=== PATIENT | female | born 1950 | race Caucasian/White ===

== ENCOUNTER 2016-03-13 22:16 | Emergency (ER) | payer OTHER ==
[2016-03-13] MEDS ORDERED: NS 1,000 ML IV ONE (22:20)
--- NOTE | 2016-03-13 22:21 | EDPHY ---
H & P HPI/ROS: HPI CHIEF COMPLAINT: Abdominal pain, right upper quadrant, epigastric HISTORY OF PRESENT ILLNESS: This patient is 65-year-old female, denies any significant medical history she does tell me remotely she had a gallbladder attack where they wanted to take her gallbladder out however she refused. She presents emergency room by EMS she received 200 mcg IV fentanyl in route by EMS , she presents due to epigastric right upper quadrant abdominal pain she describes as a punching sensation in the middle of her abdomen she tells me she had nausea but no vomiting denies fever. She tells me this started around 1930 and has been relentless. She tells me that every occasionally she gets a gallbladder attack and neck [place] and eventually goes away. Upon arrival to the emergency room she does have epigastric pain on exam and right upper quadrant pain she was given 200 mcg of fentanyl prior to arrival. She is much more comfortable. She denies chest pain, shortness of breath. She does admit that the pain radiates around to her back. Past Medical History: Denies any significant medical history Past Surgical History: Tonsillectomy Social History: denies use daily of drugs alcohol tobacco products Family History: Noncontributory ROS REVIEW OF SYSTEMS: A comprehensive 10 point review of systems is otherwise negative aside from elements mentioned in the history of present illness. Exam Constitutional triage nursing summary reviewed, vital signs reviewed, awake/ alert. Eyes normal conjunctivae and sclera, EOMI, PERRLA. HENT normal inspection, atraumatic, moist mucus membranes, no epistaxis, neck supple/ no meningismus, no raccoon eyes. Respiratory clear to auscultation bilaterally, normal breath sounds, no respiratory distress, no wheezing. Cardiovascular rate normal, regular rhythm, no murmur, no edema, distal pulses normal. Gastrointestinal soft, tender palpation in her epigastric and right upper quadrant, no rebound, no guarding, normal bowel sounds, no distension, no pulsatile mass. Genitourinary no CVA tenderness. Musculoskeletal no midline vertebral tenderness, full range of motion, no calf swelling, no tenderness of extremities, no meningismus, good pulses, neurovascularly intact. Skin pink, warm, & dry, no rash, skin atraumatic. Neurologic awake, alert and oriented x 3, AAOx3, moves all 4 extremities equally, motor intact, sensory intact, CN II-XII intact, normal cerebellar, normal vision, normal speech. Psychiatric normal mood/affect. Heme/Lymph/Immune no lymphadenopathy. Differential diagnosis includes but is not limited to and in no particular order : Bowel obstruction, appendicitis, gallbladder disease, diverticulitis, colitis , enteritis, perforated viscus, gastritis, GERD, esophagitis, urinary tract infection, pyelonephritis, kidney stones Medical Decision Making: patient had an IV established obtain blood work including abdominal labs including LFTs and lipase, patient need ultrasound of her right upper quadrant. Re-evaluation: EKG interpretation by me on record in [employer] system. Impression time of EKG 2330, this is sinus rhythm rate of 57, no acute ischemic changes appreciated. Specifically no ST elevation, ST depression, T-wave abnormality. 1237: Re-examination at this time the abdomen is soft nontender no guarding or peritoneal signs. Ultrasound does reveal gallstones however no evidence of acute cholecystitis. Her blood work is reassuring without high white count or LFT or lipase or bilirubin issue. She would like to go home. I will give her limited supply of Wesley. She does understand return to the emergency room immediately if she develops worsening symptoms worsening symptoms includes abdominal pain, fever, vomiting. I also placed on her discharge paperwork General surgery follow-up if she electively decides to have her gallbladder removed. Again on re-examination abdomen is soft there is no tenderness she is not vomiting her vitals are reassuring she would like to go home. Ultrasound of the Abdomen, right upper quadrant The results of the study are this shows gallstones no evidence of acute cholecystitis no evidence of ductal dilatation or impacted stone, I discussed the results of this study with the radiologist Dr. Olivera Source: Patient, EMS Constitutional: Initial Vital Signs Temperature (C) 36.6 C 03/13/16 22:17 Heart Rate 61 03/13/16 22:17 Respiratory Rate 16 03/13/16 22:17 Blood Pressure 120/87 H 03/13/16 22:17 O2 Sat (%) 95 03/13/16 22:17 O2 Delivery Mode Room Air Allergies/Adverse Reactions: ciprofloxacin [From Cipro] Allergy (Verified 03/13/16 22:32) ciprofloxacin HCl [From Cipro] Allergy (Verified 03/13/16 22:32) Sulfa (Sulfonamide Antibiotics) Allergy (Verified 03/13/16 22:36) Home Medications: Medication Instructions Recorded Hydrocodone/APAP [[place] 1 - 2 tab PO Q4H PRN #10 tab 03/14/16] Medical Decision Making - Data Points Laboratory Results: Laboratory Results 03/13/16 22:30 03/13/16 22:30 03/13/16 03/13/16 23:55 22:30 WBC 7.17 10^3/uL (3.80-9.50) RBC 4.51 10^6/uL (4.18-5.33) Hgb 15.0 g/dL (12.6-16.3) Hct 42.2 % (38.0-47.0) MCV 93.6 fL (81.5-99.8) MCH 33.3 pg (27.9-34.1) MCHC 35.5 g/dL (32.4-36.7) RDW 11.9 % (11.5-15.2) Plt Count 195 10^3/uL (150-400) MPV 11.1 fL (8.7-11.7) Neut % (Auto) 52.2 % (39.3-74.2) Lymph % (Auto) 39.7 % (15.0-45.0) [place] % (Auto) 5.9 % (4.5-13.0) Eos % (Auto) 1.3 % (0.6-7.6) Baso % (Auto) 0.6 % (0.3-1.7) Nucleat RBC Rel Count 0.0 % (0.0-0.2) Absolute Neuts (auto) 3.75 10^3/uL (1.70-6.50) Absolute Lymphs (auto) 2.85 10^3/uL (1.00-3.00) Absolute Monos (auto) 0.42 10^3/uL (0.30-0.80) Absolute Eos (auto) 0.09 10^3/uL (0.03-0.40) Absolute Basos (auto) 0.04 10^3/uL (0.02-0.10) Absolute Nucleated RBC 0.00 10^3/uL (0-0.01) Immature Gran % 0.3 % (0.0-1.1) Immature Gran # 0.02 10^3/uL (0.00-0.10) Sodium 137 mEq/L (134-144) Potassium 3.7 mEq/L (3.5-5.2) Chloride 103 mEq/L (97-110) Carbon Dioxide 23 mEq/l (22-31) Anion Gap 11 mEq/L (8-16) BUN 17 mg/dL (7-23) Creatinine 0.7 mg/dL (0.6-1.0) Estimated GFR > 60 Glucose 103 H mg/dL (70-100) Calcium 9.2 mg/dL (8.5-10.4) Total Bilirubin 0.6 mg/dL (0.1-1.4) Conjugated Bilirubin 0.2 mg/dL (0.0-0.5) Unconjugated Bilirubin 0.4 mg/dL (0.0-1.1) AST 62 H IU/L (14-46) ALT 45 IU/L (9-52) Alkaline Phosphatase 86 IU/L (38-126) Troponin I 0.021 ng/mL (0-0.034) Total Protein 7.2 g/dL (6.3-8.2) Albumin 4.4 g/dL (3.5-5.0) Lipase 272.0 IU/L (23-300) Urine Color YELLOW Urine Appearance CLEAR Urine pH 5.0 (5.0-7.5) Ur Specific [place] 1.023 (1.002-1.030) Urine Protein NEGATIVE (NEGATIVE) Urine Ketones TRACE H (NEGATIVE) Urine Blood NEGATIVE (NEGATIVE) Urine Nitrate NEGATIVE (NEGATIVE) Urine Bilirubin NEGATIVE (NEGATIVE) Urine Urobilinogen NEGATIVE EU (0.2-1.0) Ur Leukocyte Esterase NEGATIVE (NEGATIVE) Ur Culture Indicated? NOT INDICATED (NI) Urine Glucose NEGATIVE (NEGATIVE) Medications Given: Discontinued Medications Sodium Chloride (Ns) 1,000 mls @ 0 mls/hr IV ONCE ONE PRN Reason: Wide Open Stop: 03/13/16 22:21 Last Admin: 03/13/16 22:45 Dose: 1,000 mls Departure - Departure Disposition: Home, Routine, Self-Care Clinical Impression: Right upper quadrant abdominal pain Condition: Good Instructions: Abdominal Pain (ED) Additional Instructions: 1. stay well-hydrated do not eat fatty greasy foods. 2. Return to the emergency room if he develops worsening symptoms includes worsening abdominal pain, fever, vomiting. 3. You may follow up with a surgeon if need be. I have given you this contact information if he Sunday electively get her gallbladder out. Referrals: Tim Peacock MD [Medical Doctor] - As per Instructions Prescriptions: Hydrocodone/APAP 5/325 [[place] 5/325] 1 - 2 tab PO Q4H PRN #10 tab PRN Reason: Pain, Moderate
[2016-03-13 22:47] LABS: % IMMATURE GRANULYOCYTES 0.3 % (0.0-1.1); ABSOLUTE IMMATURE GRANULOCYTES 0.02 10^3/uL (0.00-0.10); ADD DIFF? NO; ADD MORPH? NO; ADD SCAN? NO; ATYPICAL LYMPHOCYTE FLAG 0 (0-99); FRAGMENT RBC FLAG 0 (0-99); HEMATOCRIT 42.2 % (38.0-47.0); LEFT SHIFT FLG 0 (0-99); LIPEMIA HEMOLYSIS FLAG 90 (0-99); MEAN CELL HEMOGLOBIN 33.3 pg (27.9-34.1); MEAN CELL HEMOGLOBIN CONCENTR. 35.5 g/dL (32.4-36.7); MEAN CELL VOLUME 93.6 fL (81.5-99.8); MEAN PLATELET VOLUME 11.1 fL (8.7-11.7); PLATELET CLUMPS FLAG 20 (0-99); PLATELET COUNT 195 10^3/uL (150-400); RED BLOOD CELL COUNT 4.51 10^6/uL (4.18-5.33); RED CELL DISTRIBUTION WIDTH 11.9 % (11.5-15.2)
[2016-03-13 23:03] LABS: ALANINE AMINOTRANSFERASE 45 IU/L (9-52); ALBUMIN 4.4 g/dL (3.5-5.0); ALKALINE PHOSPHATASE 86 IU/L (38-126); ANION GAP 11 mEq/L (8-16); ASPARTATE AMINOTRANSFERASE 62 IU/L (14-46); BILIRUBIN,TOTAL 0.6 mg/dL (0.1-1.4); BILIRUBIN-CONJUGATED 0.2 mg/dL (0.0-0.5); BILIRUBIN-UNCONJUGATED 0.4 mg/dL (0.0-1.1); CALCIUM 9.2 mg/dL (8.5-10.4); CARBON DIOXIDE 23 mEq/l (22-31); CHLORIDE 103 mEq/L (97-110); CREATININE 0.7 mg/dL (0.6-1.0); GLOMERULAR FILTRATION RATE > 60; GLUCOSE 103 mg/dL (70-100); POTASSIUM 3.7 mEq/L (3.5-5.2); SODIUM 137 mEq/L (134-144); TOTAL PROTEIN 7.2 g/dL (6.3-8.2)
--- NOTE | 2016-03-13 23:09 | US ---
Ultrasound abdomen limited. HISTORY: Right upper quadrant abdominal pain. FINDINGS: The liver measures 15 cm. No focal liver lesion. No evidence for intrahepatic biliary ducta l dilatation. An irregular gallstone is seen in the gallbladder measuring 1.8 cm and a couple other s maller stones. Gallbladder wall is normal in thickness without evidence for hyperemia or pericholecys tic fluid. The common bile duct measures 5.5 mm. Right kidney measures 12 10 cm in length and demonst rates no evidence for mass or hydronephrosis. No significant free fluid in the upper abdomen. Abdomin al aorta is normal in diameter. Pancreas is unremarkable. IMPRESSION: Cholelithiasis without evidence for cholecystitis. Results discussed with Dr. Oc garcia.
--- NOTE | 2016-03-13 23:32 | CPEKG ---
Heart Rate: 57 RR Interval: 1053 P-R Interval: 148 QRSD Interval: 104 QT Interval: 464 QTC Interval: 452 P [place]: 71 QRS [place]: 78 T Wave [place]: 60 EKG Severity - NORMAL ECG - EKG Impression: SINUS RHYTHM Electronically Signed By: Oc Alexandre 14-Mar-2016 05:16:56
[2016-03-14 00:09] LABS: COLOR YELLOW; LEUKOCYTE ESTERASE,URINE NEGATIVE (NEGATIVE); NITRITE,URINE NEGATIVE (NEGATIVE)
[2016-03-14 00:33] VITALS: O2SAT 98
[2016-03-14] MEDS ORDERED: HYDROCOD/APAP 5/325 PREPACK#6 BTL TAKEHOME ONE ×2 (00:55→01:00)
[2016-03-14 01:25] VITALS: BP 93/64; PULSE 56; RESP 20; TEMP 98.1
== END 2016-03-14 01:15 | disposition home or self-care (01) ==
LOC: EDUNIT#
DX: R10.11 Right upper quadrant pain (principal)

== ENCOUNTER 2017-03-26 00:19 | Observation (INO) | payer OTHER ==
[2017-03-26 00:57] LABS: PLATELET COUNT 170 10^3/uL (150-400)
[2017-03-26] MEDS ORDERED: HYDROmorphONE/DILAUDID 1 MG/ML INJ IVP PRN ×2 (01:30→08:50)
--- NOTE | 2017-03-26 01:34 | EDPHY ---
H & P Stated Complaint: "Galbladder attack", n/v Time Seen by Provider: 03/26/17 01:15 HPI/ROS: HPI The patient presents with right upper quadrant and epigastric abdominal pain which began several hours prior to presentation. She had similar pain a few days ago, though this improved after moving around and lifting some weights. Tonight her pain started suddenly and got progressively worse over time. She began vomiting and became diaphoretic. She describes the pain as a pressure like sensation that radiates to her right abdomen and feels like a band. One year ago she had a similar episode and was diagnosed with biliary colic. Her last episode before this was 10 years ago. She generally would like to avoid any operations.. REVIEW OF SYSTEMS Constitutional: No fever, no chills. Eyes: No discharge. ENT: No sore throat. Cardiovascular: No chest pain, no palpitations. Respiratory: No cough, no shortness of breath. Gastrointestinal: See HPI Genitourinary: No hematuria. Musculoskeletal: No back pain. Skin: No rashes. Neurological: No headache. PMHx: Healthy Soc Hx: Lives at home by herself with many pets PHYSICAL General Appearance: Alert, no distress Eyes: Pupils equal and round no pallor or injection ENT, Mouth: Mucous membranes moist Respiratory: There are no retractions, lungs are clear to auscultation Cardiovascular: Regular rate and rhythm Gastrointestinal: Abdomen is soft with tenderness in the epigastrium without rebound or guarding Neurological: A&O, moves all extremities Skin: Warm and dry, no rashes Musculoskeletal: Neck is supple non tender Extremities: symmetrical, full range of motion Psychiatric: Patient is oriented X 3, there is no agitation Source: Patient Exam Limitations: No limitations - Personal History Current Tetanus Diphtheria and Acellular Pertussis (TDAP): Yes - Medical/Surgical History Hx Asthma: No Hx Chronic Respiratory Disease: No Hx Diabetes: No Hx Cardiac Disease: No Hx Renal Disease: No Hx Cirrhosis: No Hx Alcoholism: No Hx HIV/AIDS: No Hx Splenectomy or Spleen Trauma: No Other PMH: gallbladder issues 20 years ago - Social History Smoking Status: Never smoked Constitutional: Initial Vital Signs Temperature (C) 36.7 C 03/26/17 00:29 Heart Rate 66 03/26/17 00:29 Respiratory Rate 20 03/26/17 00:29 Blood Pressure 110/66 03/26/17 00:29 O2 Sat (%) 98 03/26/17 00:29 O2 Delivery Mode Room Air Allergies/Adverse Reactions: ciprofloxacin [From Cipro] Allergy (Verified 03/13/16 22:32) ciprofloxacin HCl [From Cipro] Allergy (Verified 03/13/16 22:32) Sulfa (Sulfonamide Antibiotics) Allergy (Verified 03/13/16 22:36) Home Medications: Medication Instructions Recorded Herbals/Supplements -Info Only 1 ea PO DAILY 03/26/17 Medical Decision Making - Diagnostics Imaging Results: RUQ ULS demonstrates gallstone with sludge, + PCCF, + Bradshaw's discussed with Dr. Blanchard of radiology. Imaging: Discussed imaging studies w/ solutions specialist Radiologist, I viewed and interpreted images myself Differential Diagnosis: This is a very healthy 66 yo F who presents with several hours of epigastric and RUQ abd pain that radiates towards her back associated with nausea and vomiting. Similar episode about 1 year ago, though sxs improved quickly. Has had prior pain dating back about 20 years. Has not had surgical evaluation for CCY because of infrequency of sxs. On exam, uncomfortable appearing, tender in epigastrium and RUQ. Labs demonstrating very mild leukocytosis and elevated AST. RUQ US shows sludge and large stone, with small PCCF and + Bradshaw's. Pt given fentanyl en route and dilaudid here with ongoing pain. I discussed diagnosis of bilary colic versus possible mild cholecystitis. She agrees to admission to hospital for ongoing monitoring, though generally would like to avoid an operation if possible. I have discussed the case with Dr. Larios of surgery who will see the patient and admit her. - Data Points Laboratory Results: Laboratory Results 03/26/17 00:36 03/26/17 00:36 Medications Given: Hydrocodone Bitart/Acetaminophen ([place] 5/325) 1 - 2 tab PO Q4 PRN PRN Reason: Pain, Moderate Able to Take PO Stop: 04/05/17 22:08 Last Admin: 03/27/17 05:08 Dose: 2 tab Hydromorphone HCl (Dilaudid) 0.2 - 0.4 mg IVP Q2HRS PRN PRN Reason: Pain, Severe Unable to Take PO Stop: 04/05/17 22:08 Last Admin: 03/26/17 23:43 Dose: 0.4 mg Potassium Chloride/Sodium Chloride (Ns W/ 20 Kcl/L) 1,000 mls @ 125 mls/hr IV CONT MARTÍN Stop: 09/22/17 08:59 Last Admin: 03/26/17 18:26 Dose: 1,000 mls Cefazolin Sodium/Dextrose (Ancef 1 Gm (Premix)) 50 mls @ 200 mls/hr IV Q8 MARTÍN PRN Reason: Protocol Stop: 03/27/17 22:14 Last Admin: 03/27/17 05:10 Dose: 50 mls Ketorolac Tromethamine (Toradol) 15 mg IVP Q6 MARTÍN Stop: 04/01/17 00:00 Last Admin: 03/27/17 05:07 Dose: 15 mg Ondansetron HCl (Zofran) 4 mg IVP Q4 PRN PRN Reason: Nausea/Vomiting, Can't Take PO Stop: 09/22/17 08:49 Last Admin: 03/27/17 05:08 Dose: 4 mg Ondansetron HCl (Zofran) 4 mg IVP Q4 PRN PRN Reason: Nausea/Vomiting, Use 1st Stop: 09/22/17 22:08 Last Admin: 03/26/17 23:34 Dose: 4 mg Discontinued Medications Bupivacaine HCl (Sensorcaine 0.5% Vial) Confirm Administered Dose 30 ml .ROUTE .STK-MED ONE Stop: 03/26/17 20:28 Last Admin: 03/26/17 21:49 Dose: 30 ml Cefazolin Sodium (Ancef Syringe) Confirm Administered Dose 1 gm .ROUTE .STK-MED ONE Stop: 03/26/17 20:28 Last Admin: 03/26/17 21:49 Dose: Not Given Fentanyl (Sublimaze) 25 - 100 mcg IVP Q5M PRN PRN Reason: PACU, IMMEDIATE Pain control Stop: 03/26/17 23:06 Last Admin: 03/26/17 22:40 Dose: 50 mcg Heparin Sodium (Porcine) (Heparin Sodium) Confirm Administered Dose 2,000 unit .ROUTE .STK-MED ONE Stop: 03/26/17 20:28 Last Admin: 03/26/17 21:49 Dose: Not Given Hydromorphone HCl (Dilaudid) 0.5 mg IVP Q4 PRN PRN Reason: Pain, Severe Unable to Take PO Stop: 04/05/17 01:29 Last Admin: 03/26/17 01:43 Dose: 0.5 mg Sodium Chloride (Ns) 1,000 mls @ 0 mls/hr IV EDNOW ONE; Wide Open PRN Reason: Protocol Stop: 03/26/17 02:35 Last Admin: 03/26/17 02:48 Dose: 1,000 mls Cefoxitin Sodium 2 gm/ Sterile (Water) 21 mls @ 252 mls/hr IV ONCALL ONE PRN Reason: Protocol Stop: 03/26/17 08:56 Last Admin: 03/26/17 21:58 Dose: Not Given Iopamidol (Isovue-300) Confirm Administered Dose 150 ml .ROUTE .STK-MED ONE Stop: 03/26/17 20:42 Last Admin: 03/26/17 22:05 Dose: Not Given Lorazepam (Ativan Injection) 1 mg IVP ONCE ONE Stop: 03/26/17 03:01 Last Admin: 03/26/17 03:09 Dose: 1 mg Meperidine HCl (Demerol 25 Mg/Ml Syringe) 12.5 - 25 mg IVP Q10M PRN PRN Reason: PACU,shivering/rigors Stop: 03/26/17 23:06 Last Admin: 03/26/17 22:35 Dose: 12.5 mg Departure - Departure Disposition: [facility] Clinical Impression: Biliary colic Condition: Fair
[2017-03-26] MEDS ORDERED: NS 1,000 ML IV ONE (02:34)
[2017-03-26] MEDS ORDERED: LORazepam 2 MG/ML INJ IVP ONE (03:00)
[2017-03-26] MEDS ORDERED: ONDANSETRON 4 MG/2 ML VIAL IVP PRN ×3 (08:50→22:09)
[2017-03-26] MEDS ORDERED: cefOXitin SODIUM 2 GM in STERILE WATER INJ 21 ML IV ONE (08:52)
--- NOTE | 2017-03-26 10:27 | GHP ---
[f rep st] PREOP HISTORY AND PHYSICAL DATE OF ADMISSION: 03/26/2017 HISTORY OF PRESENT ILLNESS: Patient is a 66-year-old female who was admitted at this time with a gal lbladder attack. She has had multiple attacks over the past few years. Ultrasound shows a thickened gallbladder wall with multiple stones. LFTs are essentially normal except for mild elevation of her AST. She does have significant pain in the right upper quadrant and is willing to proceed with lapa roscopic cholecystectomy at this point. REVIEW OF SYSTEMS: Negative except as related to the HPI. She does not smoke and denies any cardiac injury. She does bicycle racing. MEDICATIONS: Hydrocodone. ALLERGIES: Sulfa and Cipro. PHYSICAL EXAMINATION: GENERAL: An alert 66-year-old female in no acute distress. HEAD and NECK: R eveals no icterus or adenopathy. Pupils are normal. NECK: Supple, nontender. CHEST: Clear and sy mmetric. CARDIAC: Regular rhythm. ABDOMEN: Soft. She is quite tender in the right upper quadrant . EXTREMITIES: Benign. Full range of motion, full pulses. NEUROLOGIC: Exam was physiologic. PSY CH: Revealed alert, cooperative, oriented. IMPRESSIONS: Biliary colic and cholelithiasis, cholecystitis. PLAN: Admit for laparoscopic cholecystectomy. Risks and options have been discussed and she wishes to proceed. /[id number]/MODL
[2017-03-26] MEDS: NS W/ 20 KCl/L 1,000 ML IV SCH ×2 (10:36→18:26)
--- NOTE | 2017-03-26 16:38 | ASMTCMCOM ---
CM Note CM Note Notes: Patient admitted for lap choly, should happen this afternoon. She lives independently, I do not anticipate any discharge needs. Case Management available if any arise. Current CM Discharge plan: home Date Signed: 03/26/2017 03:29 PM Electronically Signed By:Genia Armstrong RN
[2017-03-26] MEDS ORDERED: fentaNYL 100 MCG/2 ML INJ ONE ×3 (20:20→22:28)
[2017-03-26] MEDS ORDERED: MIDAZOLAM 2 MG/2 ML VIAL ONE (20:20)
[2017-03-26] MEDS ORDERED: ROCURONIUM 100 MG/10 ML VIAL ONE (20:21)
[2017-03-26] MEDS ORDERED: METOCLOPRAMIDE 10 MG/2 ML VIAL ONE (20:21)
[2017-03-26] MEDS ORDERED: LIDOCAINE 2% 100 MG/5 ML SYR ONE (20:21)
[2017-03-26] MEDS ORDERED: DEXAMETHASONE 4 MG/ML VIAL ONE ×2 (20:21)
[2017-03-26] MEDS ORDERED: PROPOFOL 200 MG/20 ML VIAL ONE (20:21)
--- NOTE | 2017-03-26 20:26 | PDANEPAE ---
ANE Past Medical History - Pulmonary History Hx Oxygen in Use at Home: No Hx Sleep Apnea: No Sleep Apnea Screening Result - Last Documented: Negative - Endocrine History Hx Diabetes: No - Chronic Pain History Chronic Pain: No ANE Review of Systems Review of Systems: ANE Patient History - Allergies Allergies/Adverse Reactions: ciprofloxacin [From Cipro] Allergy (Verified 03/13/16 22:32) ciprofloxacin HCl [From Cipro] Allergy (Verified 03/13/16 22:32) Sulfa (Sulfonamide Antibiotics) Allergy (Verified 03/13/16 22:36) - Home Medications Home Medications: Herbals/Supplements -Info Only 1 ea PO DAILY 03/26/17 [Last Taken Unknown] - NPO status NPO Since - Liquids (Date): 03/26/17 NPO Since - Liquids (Time): 03:30 NPO Since - Solids (Date): 03/26/17 NPO Since - Solids (Time): 03:30 - Smoking Hx Smoking Status: Never smoked ANE Labs/Vital Signs - Labs Result Diagrams: 03/26/17 00:36 03/26/17 00:36 - Vital Signs Blood Pressure: 106/57 Heart Rate: 60 Respiratory Rate: 18 O2 Sat (%): 92 Height: 165.1 cm Weight: 61.83 kg ANE Physical Exam - Airway Neck exam: FROM Mallampati Score: Class 2 Mouth exam: normal dental/mouth exam - Pulmonary Pulmonary: no respiratory distress - Cardiovascular Cardiovascular: regular rate and rhythym - ASA Status ASA Status: II ANE Anesthesia Plan Anesthesia Plan: general endotracheal anesthesia
[2017-03-26] MEDS ORDERED: HEPARIN 1000 UNIT/1 ML MDV ONE (20:27)
[2017-03-26] MEDS ORDERED: ceFAZolin 1 GM/5 ML SYR ONE (20:27)
[2017-03-26] MEDS ORDERED: BUPIVACAINE 0.5% 30 ML SDV ONE (20:27)
[2017-03-26] MEDS ORDERED: IOPAMIDOL (ISOVUE-300) 150 ML BTL ONE (20:41)
[2017-03-26] MEDS ORDERED: MEPERIDINE 25 MG/ML SYR IVP PRN (22:05)
[2017-03-26] MEDS ORDERED: NALOXONE HCL 0.4 MG/ML INJ IVP PRN (22:05)
[2017-03-26] MEDS ORDERED: ALBUTEROL 3 ML DEYVIAL IH PRN (22:05)
--- NOTE | 2017-03-26 22:07 | POSTANESTH ---
Post Anesthetic Evaluation Cardiovascular Status: Similar to Pre-Op Cond Respiratory Status: Similar to Pre-op Cond. Level of Consciousness/Mental Status: Mildly Sleepy, Arousable Pain Control: Adequate, Prn Tx Ordered Nausea/Vomiting Control: Adequate, Prn Tx Ordered Complications Possibly Related to Anesthesia: None Noted
--- NOTE | 2017-03-26 22:07 | POSTOPPROG ---
Post Op Note Date of Operation: 03/26/17 Surgeon: You Larios Anesthesiologist: DAVIAN Anesthesia: GET(General Endotracheal) Pre-op Diagnosis: ACUTE CHOLECYSTITIS Post-op Diagnosis: SAME Indication: PAIN Procedure: LAP CHOLY Findings: HYDROPS GB, LARGE STONE, SMALL DUCTS Inf/Abcess present in the surg proc area at time of surgery?: Yes Depth: Organ Space EBL: Minimal Complications: 0 Specimen(s): GALLBLADDER
[2017-03-26] MEDS ORDERED: D5W 1/2 NS W/ 20 KCl/L 1,000 ML IV SCH (22:15)
[2017-03-26] MEDS: fentaNYL 100 MCG/2 ML INJ IVP PRN ×2 (22:30→22:40)
[2017-03-26] MEDS ORDERED: MEPERIDINE 25 MG/ML SYR ONE (22:33)
[2017-03-26] MEDS: HYDROCODONE/APAP 5/325 TAB PO PRN (23:34)
[2017-03-26] MEDS: KETOROLAC 15 MG/1 ML SDV IVP SCH (23:35)
[2017-03-26] MEDS: HYDROmorphONE/DILAUDID 1 MG/ML INJ IVP PRN (23:43)
[2017-03-27] MEDS: KETOROLAC 15 MG/1 ML SDV IVP SCH ×3 (05:07→12:37)
[2017-03-27] MEDS: HYDROCODONE/APAP 5/325 TAB PO PRN (05:08)
[2017-03-27] MEDS: HYDROmorphONE/DILAUDID 1 MG/ML INJ IVP PRN (06:07)
[2017-03-27] MEDS: NS W/ 20 KCl/L 1,000 ML IV SCH (09:18)
[2017-03-27 12:01] VITALS: PULSE 56; RESP 16
--- NOTE | 2017-03-27 12:12 | GOP ---
[f rep st] OPERATIVE REPORT DATE OF OPERATION: 03/26/2017 SURGEON: You Larios MD REPAIRER SCREEN CRUSHER: None. ANESTHESIA: Varun Brunner MD PREOPERATIVE DIAGNOSIS: Acute cholecystitis. POSTOPERATIVE DIAGNOSIS: Acute cholecystitis. PROCEDURE PERFORMED: Laparoscopic cholecystectomy. FINDINGS: The patient was found to have a hydrops of the gallbladder with a single stone and a marke dly distended, inflamed, and edematous gallbladder. ESTIMATED BLOOD LOSS: Less than 25 cc. DESCRIPTION OF PROCEDURE: The patient was taken to the operating room and received satisfactory gene ral endotracheal anesthesia. She was prepped and draped in the usual sterile fashion and an infraumb ilical incision was made. A Veress needle was inserted and pneumoperitoneum was established. Trocar and laparoscope were introduced. Good visualization was obtained and 3 other trocars were placed in the upper abdomen under direct vision. The gallbladder was elevated up and adhesions were taken alex n. It was markedly distended and edematous. The cystic triangle was carefully dissected free. The cystic duct and cystic artery were isolated with care to avoid injury to the common bile duct. A goo d clear view was obtained. Both structures were multi-hemoclipped and divided with care to avoid inj ury to the common bile duct. The peritoneum of the gallbladder was incised and the gallbladder was d issected free from the bed of the hepatic fossa and extracted through the upper midline port site. H emostasis was obtained with electrocautery. The wound was irrigated. COMPLICATIONS: None. DISPOSITION: She was taken to the recovery room in good condition. /[id number]/MODL
[2017-03-27 16:08] VITALS: BP 97/56; TEMP 97.8; O2SAT 95
== END 2017-03-27 16:55 | disposition home or self-care (01) ==
LOC: EDUNIT# → EDBD → F3N 03:19
PROVIDERS: ADMIT Surgery; ATTEND Surgery
PROC: 0FT44ZZ Resection of Gallbladder, Percutaneous Endoscopic Approach (ICD-10-PCS; principal; 2017-03-26 15:45)
DX: K81.9 Cholecystitis, unspecified (principal)
CPT/HCPCS: 47562; 76705; G0378; 96374; J0690; J0694; J1100; J1170; J1885; J2001; J2060; J2250; J2405; J2704; J2765; J3010; Q9967

== ENCOUNTER → 2017-10-10 | Outpatient (CLI) | payer OTHER | LOC: BMCIMAGING 09:57 | PROVIDERS: ATTEND Nurse Practitioner Women's Health | DX: Z13.820 Encounter for screening for osteoporosis (principal); M85.89 Other specified disorders of bone density and structure, multiple sites; Z78.0 Asymptomatic menopausal state ==